=== PATIENT | male | born 1970 | race Caucasian/White ===

== ENCOUNTER 2020-08-26 17:19 | Inpatient (IN) | payer MEDICARE ==
[~2020-08-26] VITALS: Ht 182.9 cm; Wt 127.8 kg
[2020-08-26 18:39] LABS: BASOPHILS # (AUTO) 0.1 X10'3 (0-0.2); BASOPHILS % (AUTO) 0.4 % (0-1); EOSINOPHILS % (AUTO) 0.2 % (0-6); HEMATOCRIT 45.8 % (42.0-52.0); HEMOGLOBIN 15.7 g/dl (14.0-17.9); LYMPHOCYTES # (AUTO) 0.4 X10'3 (1.1-4.8); LYMPHOCYTES % (AUTO) 3.2 % (21-51); MEAN CORPUSCULAR HEMOGLOBIN 28.9 PG (27.0-31.0); MEAN CORPUSCULAR HGB CONC 34.2 g/dL (33.0-36.5); MEAN CORPUSCULAR VOLUME 84.4 FL (78-98); MEAN PLATELET VOLUME 7.8 FL (7.4-10.4); MONOCYTES # (AUTO) 0.4 X10'3 (0-0.9); MONOCYTES % (AUTO) 3.8 % (2-12); NEUTROPHILS # (AUTO) 10.8 X10'3 (1.8-7.7); NEUTROPHILS % (AUTO) 92.4 % (42-75); PLATELET COUNT 241 X10'3 (140-440); RED BLOOD COUNT 5.42 X10'6 (4.70-6.10); RED CELL DISTRIBUTION WIDTH 13.1 % (11.5-14.5); WHITE BLOOD COUNT 11.7 X10'3 (4.5-11.0)
[2020-08-26 18:49] LABS: ALANINE AMINOTRANSFERASE 285 U/L (12-78); ALBUMIN 4.3 G/DL (3.4-5.0); ALKALINE PHOSPHATASE 150 IU/L (46-116); ANION GAP 13 (8-16); ASPARTATE AMINO TRANSFERASE 461 U/L (10-37); BLOOD UREA NITROGEN 11 MG/DL (7-18); BUN/CREATININE RATIO 10.8 (5.4-32.0); CALCIUM 9.2 MG/DL (8.5-10.1); CHLORIDE 95 MMOL/L (99-107); CREATININE 1.02 MG/DL (0.60-1.10); GLUCOSE 344 MG/DL (70-104); POTASSIUM 3.3 MMOL/L (3.5-5.1); SODIUM 135 MMOL/L (135-145); TOTAL CARBON DIOXIDE 26.7 MMOL/L (24-32); eGFR 77 ML/MIN
[2020-08-26 18:57] LABS: ALBUMIN/GLOBULIN RATIO 1.3 (1.1-1.5); TOTAL PROTEIN 7.7 G/DL (6.4-8.2)
[2020-08-26 19:30] LABS: AMYLASE 1638 U/L (25-115); LIPASE 20656 U/L (73-393)
[2020-08-26 21:19] LABS: CLARITY,URINE CLEAR (Clear); COLOR,URINE YELLOW (Yellow); GLUCOSE, URINE >=1000 mg/dl (Neg); KETONES,URINE 15 mg/dl (Neg); LEUKOCYTE ESTERASE ,URINE NEGATIVE (Neg); NITRITES, URINE NEGATIVE (Neg); OCCULT BLOOD,URINE NEGATIVE (Neg); PROTEIN,URINE NEGATIVE (Neg); UROBILINOGEN,URINE 0.2 E.U/dL (0.2-1.0)
[2020-08-26 21:22] LABS: UA COLLECTION TYPE VOIDED
[2020-08-26] MEDS ORDERED: normal saline 1000ml 1,000 ML IV ONE (21:30)
[2020-08-26] MEDS ORDERED: ondansetron/PF 4mg/2ml inj IV ONE ×2 (21:30→22:25)
[2020-08-26] MEDS ORDERED: morphine 4 MG/ML inj SYRINge IV ONE ×2 (21:30→22:25)
--- NOTE | 2020-08-26 21:30 | NUR ---
DISCUSSED PT WITH OLI MIGUEL. VERBAL ORDERS FOR MEDS PLACED.
[2020-08-26 21:31] LABS: BACTERIA,URINE 1+ /HPF (Neg); RBC,URINE 0-2 /HPF (0-2); SQUAMOUS EPITHELIAL CELL,UR MODERATE /LPF (FEW); WBC,URINE 0-4 /HPF (0-4)
[2020-08-26] MEDS ORDERED: pantoprazole 40 MG vial IV ONE (22:25)
[2020-08-26] MEDS ORDERED: normal saline 1000ML IV soln IVB ONE (22:25)
[2020-08-26] MEDS ORDERED: morphine 2 MG/ML inj. syringe IV PRN (22:25)
[2020-08-26] MEDS ORDERED: iohexol 350MG/ML 100ml bottle IV ONE (22:59)
[2020-08-26] MEDS ORDERED: NO HOME MEDS (23:35)
[2020-08-27] MEDS ORDERED: morphine 2 MG/ML inj. syringe IV PRN (00:20)
[2020-08-27] MEDS: normal saline 1000ml 1,000 ML IV SCH ×3 (00:20→19:16)
[2020-08-27] MEDS ORDERED: acetaminophen 325mg tablet PO PRN (00:20)
[2020-08-27] MEDS ORDERED: ondansetron/PF 4mg/2ml inj IV PRN (00:20)
[2020-08-27] MEDS ORDERED: dextrose 50%-water 50ml dispensing syringe IV PRN ×2 (01:00)
[2020-08-27] MEDS ORDERED: MESSAGE TO PHARMACY PO ONE (01:00)
[2020-08-27] MEDS ORDERED: dextrose ORAL solution 15 GM/59 ML bottle PO PRN ×2 (01:00)
[2020-08-27] MEDS ORDERED: glucagon, human recombinant 1mg kit SUBCUT PRN (01:00)
[2020-08-27 01:34] LABS: HEMOGLOBIN A1C 9.2 % (4.5-6.2)
[2020-08-27 01:40] VITALS: BP 157/65
--- NOTE | 2020-08-27 01:40 | NUR ---
PATIENT ADMITTED TO ROOM 359A FROM ER FOR GALLSTONE AND PANCREATITIS. PLACED COMFORTABLE IN BED . VITAL SIGNS TAKEN AND RECORDED.
[2020-08-27 05:29] LABS: LIPASE 6134 U/L (73-393); TRIGLYCERIDES 269 MG/DL (20-135)
--- NOTE | 2020-08-27 06:30 | NUR ---
Problems reprioritized. Patient report given, questions answered & plan of care reviewed with ОЛЬГА MAURICIO.
--- NOTE | 2020-08-27 06:42 | NUR ---
Patient in room [facility]. I have received report from Nga MAURICIO and had the opportunity to ask questions and assume patient care.
[2020-08-27 07:00] VITALS: BP 160/96
--- NOTE | 2020-08-27 07:20 | NUR ---
Patient blood sugar this am was 220mg/dl. I talked to the patient about possibly needing insulin for the high blood sugar and that his A1C was 9.2 which is significantly high. Patient states "That's because my pancreas is messed up!" Patient states "No, I don't want any insulin!" Patient also states "TI advised patient to speak to the doctor about this. Addendum: 08/27/20 at 0750 by Tegan Hays RN Correction to the last sentence note above: Patient was advised to speak to the doctor about this.
[2020-08-27] MEDS: heparin, porcine 5000 units/ml vial SQ SCH ×2 (08:00→20:00)
--- NOTE | 2020-08-27 08:43 | NUR ---
Patient requested not to have his heparin dose given this am until he speak to the doctor.
[2020-08-27 11:00] VITALS: BP 148/83
[2020-08-27 11:04] LABS: ALANINE AMINOTRANSFERASE 341 U/L (12-78); ALBUMIN 3.5 G/DL (3.4-5.0); ALKALINE PHOSPHATASE 108 IU/L (46-116); ANION GAP 13 (8-16); ASPARTATE AMINO TRANSFERASE 320 U/L (10-37); BLOOD UREA NITROGEN 10 MG/DL (7-18); BUN/CREATININE RATIO 11.4 (5.4-32.0); CALCIUM 8.3 MG/DL (8.5-10.1); CHLORIDE 104 MMOL/L (99-107); CREATININE 0.88 MG/DL (0.60-1.10); GLUCOSE 278 MG/DL (70-104); POTASSIUM 3.8 MMOL/L (3.5-5.1); SODIUM 141 MMOL/L (135-145); TOTAL CARBON DIOXIDE 24.2 MMOL/L (24-32); eGFR > 90 ML/MIN
--- NOTE | 2020-08-27 11:27 | NUR ---
Paged Dr. Sepulveda PAGER ID: [phone] MESSAGE: Surgical. Tegan MAURICIO, ext. [phone]. RE: Dagoberto Abdullahi. A1C 9.2, blood sugar this AM 220 mg/dl. Pt. does not want insulin
[2020-08-27 12:30] LABS: ALBUMIN/GLOBULIN RATIO 1.1 (1.1-1.5); TOTAL PROTEIN 6.6 G/DL (6.4-8.2)
[2020-08-27] MEDS: insulin Lispro (HumaLOG) vial - multi-dose SQ SCH ×3 (14:30→22:03)
--- NOTE | 2020-08-27 16:47 | NUR ---
DM Consult: A1C 9.2 hx T2DM per EMR. Pt admit DX acute pancreatitis suspected gallstone-related and may benefit from GB removal per EMR. NPO at this time w/ Lipase down to 6134 from on admit. TG 269 on admit as well. Pt abdominal pain improving per MD note today. LBM 08/26. Will monitor for PO diet advancement and tolerance as medically indicated. Pt would benefit from DM ed once more appropriate prior to discharge. Will continue to monitor. Rec: 1. advance diet as medically indicated to heart healthy 2. consider anti-hyperlipidemic if MG agreeable given TG 269 on admit w/ pancreatitis DX per EMR 3. bowel care per rx 4. wt per rx 5. DM ed once more appropriate this admit Addendum: 08/27/20 at [address] Amended: Links added.
--- NOTE | 2020-08-27 17:00 | NUR ---
Student documentation: I have reviewed and agree with all interventions, assessments performed and documented by ELLA Pulliam.
--- NOTE | 2020-08-27 18:30 | NUR ---
Problems reprioritized. Patient report given, questions answered & plan of care reviewed with Nga MAURICIO.
--- NOTE | 2020-08-27 18:32 | NUR ---
Patient in room [facility]. I have received report from ОЛЬГА MAURICIO and had the opportunity to ask questions and assume patient care.
[2020-08-27 20:00] VITALS: BP 156/82
--- NOTE | 2020-08-27 23:23 | NUR ---
Pt had home CPAP brought into the hospital today. I removed the V60 from patient's room.
[2020-08-28] VITALS: BP 145/73
[2020-08-28] MEDS: normal saline 1000ml 1,000 ML IV SCH ×2 (04:26→14:13)
[2020-08-28 05:15] LABS: BASOPHILS % (AUTO) 0.7 % (0-1); EOSINOPHILS # (AUTO) 0.3 X10'3 (0-0.9); EOSINOPHILS % (AUTO) 5.2 % (0-6); HEMATOCRIT 38.3 % (42.0-52.0); LYMPHOCYTES # (AUTO) 0.4 X10'3 (1.1-4.8); LYMPHOCYTES % (AUTO) 8.5 % (21-51); MEAN CORPUSCULAR HEMOGLOBIN 29.2 PG (27.0-31.0); MEAN CORPUSCULAR VOLUME 85.8 FL (78-98); MEAN PLATELET VOLUME 8.1 FL (7.4-10.4); MONOCYTES # (AUTO) 0.4 X10'3 (0-0.9); MONOCYTES % (AUTO) 7.5 % (2-12); NEUTROPHILS # (AUTO) 3.8 X10'3 (1.8-7.7); NEUTROPHILS % (AUTO) 78.1 % (42-75); PLATELET COUNT 165 X10'3 (140-440); RED BLOOD COUNT 4.46 X10'6 (4.70-6.10); RED CELL DISTRIBUTION WIDTH 13.5 % (11.5-14.5); WHITE BLOOD COUNT 4.9 X10'3 (4.5-11.0)
[2020-08-28 05:30] LABS: ALANINE AMINOTRANSFERASE 261 U/L (12-78); ALBUMIN 3.1 G/DL (3.4-5.0); ALKALINE PHOSPHATASE 111 IU/L (46-116); ANION GAP 9 (8-16); ASPARTATE AMINO TRANSFERASE 130 U/L (10-37); BILIRUBIN,TOTAL 4.9 MG/DL (0.1-1.0); BLOOD UREA NITROGEN 11 MG/DL (7-18); BUN/CREATININE RATIO 16.2 (5.4-32.0); CALCIUM 8.4 MG/DL (8.5-10.1); CHLORIDE 105 MMOL/L (99-107); CREATININE 0.68 MG/DL (0.60-1.10); GLUCOSE 212 MG/DL (70-104); POTASSIUM 3.7 MMOL/L (3.5-5.1); SODIUM 141 MMOL/L (135-145); TOTAL CARBON DIOXIDE 27.3 MMOL/L (24-32); eGFR > 90 ML/MIN
[2020-08-28 05:39] LABS: TOTAL PROTEIN 6.2 G/DL (6.4-8.2)
--- NOTE | 2020-08-28 06:30 | NUR ---
Problems reprioritized. Patient report given, questions answered & plan of care reviewed with DELILAH MAURICIO.
--- NOTE | 2020-08-28 06:55 | NUR ---
Patient in room [facility]. I have received report from HANG Sheikh and had the opportunity to ask questions and assume patient care.
[2020-08-28] MEDS: heparin, porcine 5000 units/ml vial SQ SCH ×2 (07:36→19:20)
[2020-08-28] MEDS: insulin Lispro (HumaLOG) vial - multi-dose SQ SCH ×3 (08:46→18:53)
[2020-08-28 11:00] VITALS: BP 147/86
[2020-08-28 14:11] LABS: LIPASE 392 U/L (73-393)
[2020-08-28 18:00] VITALS: BP 177/82
--- NOTE | 2020-08-28 18:22 | NUR ---
Patient in room [facility]. I have received report from Darlin MAURICIO and had the opportunity to ask questions and assume patient care.
--- NOTE | 2020-08-28 18:38 | NUR ---
Problems reprioritized. Patient report given, questions answered & plan of care reviewed with HANG Ye.
[2020-08-29 00:10] VITALS: BP 150/81
[2020-08-29] MEDS: normal saline 1000ml 1,000 ML IV SCH ×2 (00:11→09:36)
[2020-08-29 05:18] LABS: BASOPHILS % (AUTO) 0.8 % (0-1); EOSINOPHILS # (AUTO) 0.3 X10'3 (0-0.9); EOSINOPHILS % (AUTO) 5.8 % (0-6); HEMATOCRIT 37.5 % (42.0-52.0); HEMOGLOBIN 12.9 g/dl (14.0-17.9); LYMPHOCYTES # (AUTO) 0.6 X10'3 (1.1-4.8); LYMPHOCYTES % (AUTO) 13.7 % (21-51); MEAN CORPUSCULAR HEMOGLOBIN 29.7 PG (27.0-31.0); MEAN CORPUSCULAR HGB CONC 34.4 g/dL (33.0-36.5); MEAN CORPUSCULAR VOLUME 86.3 FL (78-98); MEAN PLATELET VOLUME 7.9 FL (7.4-10.4); MONOCYTES # (AUTO) 0.3 X10'3 (0-0.9); MONOCYTES % (AUTO) 7.7 % (2-12); NEUTROPHILS # (AUTO) 3.2 X10'3 (1.8-7.7); PLATELET COUNT 165 X10'3 (140-440); RED BLOOD COUNT 4.34 X10'6 (4.70-6.10); RED CELL DISTRIBUTION WIDTH 13.2 % (11.5-14.5); WHITE BLOOD COUNT 4.5 X10'3 (4.5-11.0)
[2020-08-29 05:25] LABS: ALANINE AMINOTRANSFERASE 186 U/L (12-78); ALBUMIN/GLOBULIN RATIO 0.9 (1.1-1.5); ALKALINE PHOSPHATASE 129 IU/L (46-116); ANION GAP 8 (8-16); ASPARTATE AMINO TRANSFERASE 62 U/L (10-37); BILIRUBIN,TOTAL 2.7 MG/DL (0.1-1.0); BLOOD UREA NITROGEN 11 MG/DL (7-18); BUN/CREATININE RATIO 16.7 (5.4-32.0); CHLORIDE 104 MMOL/L (99-107); CREATININE 0.66 MG/DL (0.60-1.10); GLUCOSE 165 MG/DL (70-104); LIPASE 218 U/L (73-393); POTASSIUM 3.6 MMOL/L (3.5-5.1); SODIUM 137 MMOL/L (135-145); TOTAL CARBON DIOXIDE 25.4 MMOL/L (24-32); TOTAL PROTEIN 6.2 G/DL (6.4-8.2); eGFR > 90 ML/MIN
--- NOTE | 2020-08-29 06:18 | NUR ---
Problems reprioritized. Patient report given, questions answered & plan of care reviewed with Kylee MAURICIO.
[2020-08-29 08:00] VITALS: BP 133/69
[2020-08-29] MEDS: heparin, porcine 5000 units/ml vial SQ SCH (08:00)
[2020-08-29] MEDS: insulin Lispro (HumaLOG) vial - multi-dose SQ SCH ×2 (08:22→13:37)
[2020-08-29 11:00] VITALS: BP 164/90
[2020-08-29] MEDS ORDERED: METF500T PO (12:02)
[2020-08-29 12:23] LABS: CHOL/HDL RATIO 13.5 (0.00-4.99); CHOLESTEROL 203 MG/DL (0-200); HDL CHOLESTEROL 15 MG/DL (35-60); LDL CHOLESTEROL 136 MG/DL (50-100); TRIGLYCERIDES 228 MG/DL (20-135)
--- NOTE | 2020-08-29 15:41 | NUR ---
Pt D/C'd home in stable condition. Diabetes education, discharge, and medication instructions given to pt. IV removed prior discharge. Pt was escorted on W/C to main lobby. Left the hospital via private vehicle accompanied by family member.
[2020-09-01 16:55] LABS: HBSAG SCREEN Negative (Negative); HEPATITIS C ANTIBODY <0.1 s/co ratio (0.0-0.9)
== END 2020-08-29 15:20 | disposition home or self-care (01) | DRG 440 ==
LOC: ER 17:21 → ED HOLD 08-27 00:17 → SUR 3N 08-27 01:35
PROVIDERS: ADMIT Internal Medicine; ATTEND Internal Medicine
PROC: BW211ZZ Computerized Tomography (CT Scan) of Abdomen and Pelvis using Low Osmolar Contrast (ICD-10-PCS; 2020-08-26)
PROC: 5A09357 Assistance with Respiratory Ventilation, Less than 24 Consecutive Hours, Continuous Positive Airway Pressure (ICD-10-PCS; principal; 2020-08-27)
PROC: 5A09357 Assistance with Respiratory Ventilation, Less than 24 Consecutive Hours, Continuous Positive Airway Pressure (ICD-10-PCS; 2020-08-29)
DX: K85.90 Acute pancreatitis without necrosis or infection, unspecified (principal); E87.6 Hypokalemia; N28.9 Disorder of kidney and ureter, unspecified; E11.9 Type 2 diabetes mellitus without complications; G47.30 Sleep apnea, unspecified; G89.29 Other chronic pain; K21.9 Gastro-esophageal reflux disease without esophagitis; M54.9 Dorsalgia, unspecified; Z98.1 Arthrodesis status
CPT/HCPCS: 36415; 74177; 76700; 80053; 80061; 81001; 82150; 82948; 83036; 83690; 84478; 85025; 86705; 86706; 86803; 87081; 87340; 94660; 94760; 96374; 99285; C9113; G0378; J1815; J2270; J2405; J7030; Q9967

== ENCOUNTER 2024-01-26 11:57 | Emergency (ER) | payer MEDICARE ==
[~2024-01-26] VITALS: Ht 182.9 cm; Wt 125.9 kg
[~2024-01-26 11:57] MED LIST: NO HOME MEDS
[2024-01-26 12:29] LABS: BASOPHILS # (AUTO) 0.1 X10'3 (0-0.2); BASOPHILS % (AUTO) 1.1 % (0-1); EOSINOPHILS # (AUTO) 0.2 X10'3 (0-0.9); EOSINOPHILS % (AUTO) 3.6 % (0-6); HEMATOCRIT 44.9 % (42.0-52.0); HEMOGLOBIN 15.6 g/dl (14.0-17.9); LYMPHOCYTES # (AUTO) 1.5 X10'3 (1.1-4.8); LYMPHOCYTES % (AUTO) 27.4 % (21-51); MEAN CORPUSCULAR HEMOGLOBIN 28.9 PG (27.0-31.0); MEAN CORPUSCULAR HGB CONC 34.7 g/dL (33.0-36.5); MEAN CORPUSCULAR VOLUME 83.5 FL (78-98); MEAN PLATELET VOLUME 7.6 FL (7.4-10.4); MONOCYTES # (AUTO) 0.4 X10'3 (0-0.9); MONOCYTES % (AUTO) 6.6 % (2-12); NEUTROPHILS # (AUTO) 3.3 X10'3 (1.8-7.7); NEUTROPHILS % (AUTO) 61.3 % (42-75); PLATELET COUNT 194 X10'3 (140-440); RED BLOOD COUNT 5.38 X10'6 (4.70-6.10); RED CELL DISTRIBUTION WIDTH 13.4 % (11.5-14.5); WHITE BLOOD COUNT 5.3 X10'3 (4.5-11.0)
[2024-01-26 13:00] LABS: ALANINE AMINOTRANSFERASE 50 U/L (12-78); ALBUMIN 4.1 G/DL (3.4-5.0); ALBUMIN/GLOBULIN RATIO 1.2 (1.1-1.5); ALKALINE PHOSPHATASE 76 IU/L (46-116); ANION GAP 12 (8-16); ASPARTATE AMINO TRANSFERASE 27 U/L (10-37); BILIRUBIN,TOTAL 0.7 MG/DL (0.1-1.0); BLOOD UREA NITROGEN 12 MG/DL (7-18); BUN/CREATININE RATIO 18.8 (10.0-20.0); CALCIUM 9.3 MG/DL (8.5-10.1); CHLORIDE 100 MMOL/L (99-107); CREATININE 0.64 MG/DL (0.60-1.10); GLUCOSE 315 MG/DL (70-104); POTASSIUM 4.4 MMOL/L (3.5-5.1); PRO BRAIN NATRIURETIC PEPTIDE 91 PG/ML (0-125); SODIUM 140 MMOL/L (135-145); TOTAL CARBON DIOXIDE 27.9 MMOL/L (24-32); TOTAL PROTEIN 7.6 G/DL (6.4-8.2); eCRCL 143 ML/MIN; eGFR > 90 ML/MIN
[2024-01-26] MEDS: aspirin 325mg tablet PO ONE (16:31)
[2024-01-26 17:12] VITALS: BP 145/77; PULSE 74; RESP 20; TEMP 97.9; O2SAT 99
== END 2024-01-26 17:13 | disposition home or self-care (01) ==
LOC: ER 11:58
DX: R07.89 Other chest pain (principal); K21.9 Gastro-esophageal reflux disease without esophagitis; E11.9 Type 2 diabetes mellitus without complications
CPT/HCPCS: 36415; 71045; 80053; 83880; 84484; 85025; 93005; 99285